=== PATIENT | female | born 1945 | race African-American/Black ===

== ENCOUNTER 2018-07-15 12:08 | Emergency (ER) | payer BC, OTHER ==
[~2018-07-15] VITALS: Ht 165.1 cm; Wt 63.6 kg
[2018-07-15 12:19] VITALS: Ht 165.1 cm; Wt 63.6 kg
--- NOTE | 2018-07-15 12:21 | ERD ---
ER Documentation Chief Complaint Chief Complaint Medications Home Meds Reported Medications Lisinopril* (Lisinopril*) 20 Mg Tablet, 20 MG PO DAILY, #30 TAB 07/15/18 Hydrochlorothiazide* (Hydrochlorothiazide*) 25 Mg Tab, 25 MG PO DAILY, #30 TAB 07/15/18 Atorvastatin* (Atorvastatin*) 40 Mg Tablet, 40 MG PO QHS, #30 TAB 07/15/18 Amlodipine Besylate* (Norvasc*) 5 Mg Tablet, 5 MG PO DAILY, TAB 07/15/18 Allergies Allergies: Coded Allergies: No Known Allergy (Unverified , 07/15/18) Physical Exam Vitals Vital Signs Date Temp Pulse Resp B/P (MAP) Pulse Ox O2 O2 Flow FiO2 Time Delivery Rate 07/15/18 61 18 140/64 100 Room Air 13:42 (89) 07/15/18 97.7 88 18 133/67 98 12:19 (89) Result Diagram: 07/15/18 1200 07/15/18 1200 Results 24 hrs Laboratory Tests Test 07/15/18 12:00 07/15/18 13:39 White Blood Count 8.0 10^3/ul Red Blood Count 3.86 10^6/ul Hemoglobin 11.7 g/dl Hematocrit 35.9 % Mean Corpuscular Volume 93.0 fl Mean Corpuscular Hemoglobin 30.3 pg Mean Corpuscular Hemoglobin Concent 32.6 g/dl Red Cell Distribution Width 14.0 % Platelet Count 297 10^3/UL Mean Platelet Volume 10.4 fl Immature Granulocytes % 1.500 % Neutrophils % 61.2 % Lymphocytes % 25.6 % Monocytes % 6.9 % Eosinophils % 3.7 % Basophils % 1.1 % Nucleated Red Blood Cells % 0.0 /100WBC Immature Granulocytes # 0.120 10^3/ul Neutrophils # 4.9 10^3/ul Lymphocytes # 2.1 10^3/ul Monocytes # 0.6 10^3/ul Eosinophils # 0.3 10^3/ul Basophils # 0.1 10^3/ul Nucleated Red Blood Cells # 0.0 10^3/ul Sodium Level 140 mmol/L Potassium Level 3.0 mmol/L Chloride Level 103 mmol/L Carbon Dioxide Level 27 mmol/L Anion Gap 10 Blood Urea Nitrogen 17 mg/dl Creatinine 1.73 mg/dl Est Glomerular Filtrat Rate mL/min mL/min Glucose Level 177 mg/dl Calcium Level 9.5 mg/dl Troponin I < 0.012 ng/ml Bedside Glucose 127 mg/dL Current Medications Medications Dose Sig/Darryl Start Time Status Last (Trade) Ordered Route PRN Stop Time Admin Dose Reason Admin Sodium 1,000 ml @ Q1H STAT 07/15/18 DC 07/15/18 Chloride 1,000 mls/hr IV 12:45 12:52 07/15/18 13:44 Potassium 40 meq ONCE STAT 07/15/18 DC Chloride PO 13:57 (Klor-Con 20) 07/15/18 13:58 Departure Comments IN ERROR Disregard RAZ KHAN MD Jul 15, 2018 12:21 CRUZ YIP MD Jul 15, 2018 14:33
[2018-07-15] MEDS ORDERED: ATOR40TA68 PO (12:31)
[2018-07-15] MEDS ORDERED: AMLO5TAB4 PO (12:31)
[2018-07-15] MEDS ORDERED: HYDR25TA6 PO (12:32)
[2018-07-15] MEDS ORDERED: LISI-471 PO (12:32)
[2018-07-15] MEDS ORDERED: SOD CHLORIDE 0.9% 1,000 ML IV STA (12:45)
[2018-07-15] MEDS ORDERED: POTASSIUM CHLORIDE (SR) 20 MEQ TAB PO STA (13:57)
--- NOTE | 2018-07-15 15:00 | ERD ---
ER Documentation Chief Complaint Chief Complaint dizziness near syncope at the bank denies cp sob HPI 71-year-old female, history of hypertension, hyperlipidemia and chronic kidney disease presents to the ED via rescue ambulance for evaluation of near syncope. Patient reports that she was waiting on line at a bank for approximately 5 minutes when she suddenly became lightheaded and felt as though she would pass out. No chest pain, palpitations, shortness of breath, headache, visual changes or other prodrome. Bystanders assisted her to the ground but patient never lost consciousness. No seizure activity, fecal or urinary incontinence. Patient was laid down on the couch and paramedics were called about the time she arrived she was asymptomatic. Accu-Chek was greater than 100 mg/dL. Denies chest pain, abdominal pain, nausea, vomiting, shortness of breath, cough, focal weakness, numbness, visual changes leg pain or swelling. No hearing changes or vertiginous type symptoms. No URI symptoms, fevers or chills. Currently asymptomatic. ROS All systems reviewed and are negative except as per history of present illness. Medications Home Meds Reported Medications Lisinopril* (Lisinopril*) 20 Mg Tablet, 20 MG PO DAILY, #30 TAB 07/15/18 Hydrochlorothiazide* (Hydrochlorothiazide*) 25 Mg Tab, 25 MG PO DAILY, #30 TAB 07/15/18 Atorvastatin* (Atorvastatin*) 40 Mg Tablet, 40 MG PO QHS, #30 TAB 07/15/18 Amlodipine Besylate* (Norvasc*) 5 Mg Tablet, 5 MG PO DAILY, TAB 07/15/18 Allergies Allergies: Coded Allergies: No Known Allergy (Unverified , 07/15/18) PMhx/Soc Reviewed in chart. As per HPI. History of Surgery: Yes Anesthesia Reaction: No Hx Neurological Disorder: No Hx Respiratory Disorders: No Hx Cardiac Disorders: Yes (Hypertension) Hx Psychiatric Problems: No Hx Miscellaneous Medical Probl: Yes (Hyperlipidemia, chronic kidney disease) Hx Alcohol Use: No Hx Substance Use: Yes (Marijuana) Hx Tobacco Use: Yes Smoking Status: Current every day smoker FmHx No sudden cardiac , stroke or cancer Physical Exam Vitals Vital Signs Date Temp Pulse Resp B/P (MAP) Pulse Ox O2 O2 Flow FiO2 Time Delivery Rate 07/15/18 61 18 140/64 100 Room Air 13:42 (89) 07/15/18 97.7 88 18 133/67 98 12:19 (89) Physical Exam Const: Alert and oriented. No acute distress Head: Atraumatic Eyes: Pupils equal reactive to light, extraocular movements are intact. No nystagmus. Normal Conjunctiva ENT: Normal External Ears, Nose and Mouth. Neck: Full range of motion. No JVD. Carotids are 2+ bilaterally without bruits. No meningismus. Resp: Breath sounds are equal and clear to auscultation bilaterally Cardio: Regular rate and rhythm, no murmurs, gallops or rubs.. No masses or abnormal pulsations. Abd: Soft, non tender, non distended. Normal bowel sounds Skin: No petechiae or rashes Back: No midline or flank tenderness Ext: No cyanosis, or edema. Pulses 4+ in all extremities. Neur: Awake and alert. Cranial nerves II through XII are grossly intact. Motor and sensory equal bilaterally. No focal deficit. Psych: Normal Mood and Affect patient does not appear anxious or depressed. Result Diagram: 07/15/18 1200 07/15/18 1200 Results 24 hrs Laboratory Tests Test 07/15/18 12:00 07/15/18 13:39 White Blood Count 8.0 10^3/ul Red Blood Count 3.86 10^6/ul Hemoglobin 11.7 g/dl Hematocrit 35.9 % Mean Corpuscular Volume 93.0 fl Mean Corpuscular Hemoglobin 30.3 pg Mean Corpuscular Hemoglobin Concent 32.6 g/dl Red Cell Distribution Width 14.0 % Platelet Count 297 10^3/UL Mean Platelet Volume 10.4 fl Immature Granulocytes % 1.500 % Neutrophils % 61.2 % Lymphocytes % 25.6 % Monocytes % 6.9 % Eosinophils % 3.7 % Basophils % 1.1 % Nucleated Red Blood Cells % 0.0 /100WBC Immature Granulocytes # 0.120 10^3/ul Neutrophils # 4.9 10^3/ul Lymphocytes # 2.1 10^3/ul Monocytes # 0.6 10^3/ul Eosinophils # 0.3 10^3/ul Basophils # 0.1 10^3/ul Nucleated Red Blood Cells # 0.0 10^3/ul Sodium Level 140 mmol/L Potassium Level 3.0 mmol/L Chloride Level 103 mmol/L Carbon Dioxide Level 27 mmol/L Anion Gap 10 Blood Urea Nitrogen 17 mg/dl Creatinine 1.73 mg/dl Est Glomerular Filtrat Rate mL/min mL/min Glucose Level 177 mg/dl Calcium Level 9.5 mg/dl Troponin I < 0.012 ng/ml Bedside Glucose 127 mg/dL Current Medications Medications Dose Sig/Darryl Start Time Status Last (Trade) Ordered Route PRN Stop Time Admin Dose Reason Admin Sodium 1,000 ml @ Q1H STAT 07/15/18 DC 07/15/18 Chloride 1,000 mls/hr IV 12:45 12:52 07/15/18 13:44 Potassium 40 meq ONCE STAT 07/15/18 DC Chloride PO 13:57 (Klor-Con 20) 07/15/18 13:58 Procedures/MDM DOCUMENTS REVIEWED: ED nurse, EMS report and [facility] snapshot including prior EKG. EKG: Time: 1212. Sinus rhythm. No ectopy. Ventricular rate 99. Normal AR QRS. Q waves in 2, 3, aVF, V5 and V6. No acute ST segment elevation or depression. EKG is unchanged from July 13, 2017. My Interpretation MEDICAL DECISION MAKIN-year-old female history of hypertension, h yperlipidemia and chronic kidney disease presents to the ED via rescue animals for evaluation of near syncope. CBC to evaluate for anemia, leukocytosis and thrombocytopenia reveals borderline anemia. Chemistry significant for hypokalemia and elevated creatinine consistent with previously diagnosed chronic kidney disease. Troponin is negative. EKG remarkable for inferior Q waves which is unchanged from prior EKG but no ectopy. No headache, neck pain, neurologic changes, symptoms of subarachnoid hemorrhage, CVA/TIA; neuro imaging is not indicated. Patient with near syncope of uncertain etiology. Although benign etiology including vasovagal syncope is possible and more ominous etiology including cardiac dysrhythmia is not ruled out. Pulmonary embolism and aortic dissection are considered but unlikely. Mild hypokalemia replaced orally. Chronic kidney disease which appears stable. No signs of an occult infectious process. Shared decision making regarding disposition. Patient ad amantly refusing admission. She clearly understands etiology of her symptoms is not established and potential, serious, life-threatening etiologies including but not limited to cardiac dysrhythmia are not ruled out. Urgent, outpatient follow-up is mandatory or return to the ED immediately if symptoms recur or any other concerns. Patient is otherwise stable for discharge with precautionary instructions and urgent, outpatient, mandatory follow-up as counseled. CALLS/CONSULTATIONS: Time: [facility]. Dr Odonnell. Case #[id number] assigned. Smoking Cessation Therapy: Pt. was lectured for greater than 3 minutes on the health risks of continued smoking and the benefits of cessation. Though the patient's latest blood pressure was elevated (>120/80), the patient has a known history of hypertension and urged to pursue adjustment of their medical therapy within a week with their primary care physician. Please refer to the medication reconciliation form for the current list of hypertensive medications. Counseled patient regarding diagnostic workup, diagnosis and need for followup. Understands to return to ED if symptoms recur, worsen or any other concerns. Departure Diagnosis: Primary Impression: Near syncope Additional Impressions: Chronic kidney disease Chronic kidney disease stage: unspecified stage Qualified Codes: N18.9 - Chronic kidney disease, unspecified Hypertension Hypertension type: unspecified Qualified Codes: I10 - Essential (primary) hypertension Hypokalemia Condition: Stable RAZ KHAN MD Jul 15, 2018 15:00
[2018-07-15 15:25] VITALS: BP 122/69; PULSE 66; RESP 18
== END 2018-07-15 16:27 | disposition home or self-care (01) ==
LOC: E/R 12:08
DX: R55 Syncope and collapse (principal); I12.9 Hypertensive chronic kidney disease with stage 1 through stage 4 chronic kidney disease, or unspecified chronic kidney disease; N18.9 Chronic kidney disease, unspecified; E87.6 Hypokalemia; F17.210 Nicotine dependence, cigarettes, uncomplicated
CPT/HCPCS: 36415; 80048; 82962; 84484; 85025; 99284; J7030; 93005